=== PATIENT | male | born 2000 | race Caucasian/White ===

== ENCOUNTER 2021-03-25 02:58 | Emergency (ER) | payer OTHER ==
[~2021-03-25 02:58] MED LIST: FLEXERIL 10 MG10 MG PO; IBUPROFEN800 MG PO; K-DUR TAB 20 M20 MEQ PO
== END 2021-03-25 03:10 | disposition expired ==
LOC: ER1 02:58
DX: R06.02 Shortness of breath (principal); R07.9 Chest pain, unspecified
CPT/HCPCS: 36600; 82803; 99285; J0171